=== PATIENT | male | born 2000 | race Hispanic/Latino ===

== ENCOUNTER 2024-07-10 16:54 | Emergency (ER) | payer OTHER ==
[~2024-07-10] VITALS: Ht 182.9 cm; Wt 86.2 kg
[2024-07-10 17:15] VITALS: PULSE 70; RESP 16; TEMP 98.6; O2SAT 100
[2024-07-10] MEDS ORDERED: BELLADONNA ALK/PHENOBARBITAL 5 ML UDC PO STA (17:29)
[2024-07-10] MEDS ORDERED: MAGNESIUM/ALUMINUM/SIMETHICONE 30 ML UDC PO ONE (17:30)
[2024-07-10] MEDS ORDERED: LIDOCAINE VISC 2% SOLN 15 ML UDC PO ONE (17:30)
[2024-07-10] MEDS ORDERED: ONDANSETRON HCL INJ 2MG/ML 2ML 2 MG/ML VIAL IV PRN (17:30)
[2024-07-10 18:23] LABS: BASOPHILS # (AUTO) 0.1 (0.0-0.1); BASOPHILS % 0.5 % (0.0-1.0); EOSINOPHILS # (AUTO) 3.4 (0.0-0.4); HEMATOCRIT 45.8 % (38.2-49.6); HEMOGLOBIN 15.8 g/dL (14.0-18.0); LYMPHOCYTES # (AUTO) 2.2 (1.0-3.2); LYMPHOCYTES % 17.5 % (18.0-39.1); MEAN CORPUSCULAR HGB CONC 34.5 g/dL (31-35); MEAN CORPUSCULAR VOLUME 84.2 fL (81-99); MONOCYTES # (AUTO) 0.5 (0.2-0.8); MONOCYTES % 4.3 % (4.4-11.3); NEUTROPHILS # (AUTO) 6.3 (2.1-6.9); NEUTROPHILS % 50.4 % (38.7-80.0); PLATELET COUNT 333 x10e3/uL (140-360); RED BLOOD COUNT 5.44 x10e6/uL (4.3-5.7); RED CELL DISTRIBUTION WIDTH 12.2 % (11.7-14.4)
[2024-07-10] MEDS: DONNATAL/LIDOCAINE/MAALOX 30 ML SUSP PO ONE (18:30)
[2024-07-10] MEDS: SODIUM CHLORIDE 0.9% 1000ML 1,000 ML IV STA (18:30)
[2024-07-10 18:45] LABS: ALBUMIN 4.5 g/dL (3.5-5.0); ALBUMIN/GLOBULIN RATIO 1.5 (0.8-2.0); BILIRUBIN,TOTAL 0.4 mg/dL (0.2-1.2); CALCIUM 9.9 mg/dL (8.4-10.2); CREATININE, SERUM 1.08 mg/dL (0.72-1.25); TOTAL PROTEIN 7.6 g/dL (6.5-8.1)
[2024-07-10 19:38] LABS: WHITE BLOOD COUNT 12.45 x10e3/uL (4.8-10.8)
[2024-07-10 19:39] LABS: EOSINOPHILS % 26.9 % (0.0-6.0)
[2024-07-10] MEDS ORDERED: DICYCLOMINE HCL20 MG PO (20:07)
[2024-07-10] MEDS ORDERED: ONDANSETRON ODT4 MG SL (20:07)
[2024-07-10] MEDS ORDERED: PANTOPRAZOLE SO40 MG PO (20:07)
== END 2024-07-10 20:17 | disposition home or self-care (01) ==
LOC: ER 17:00
DX: R10.13 Epigastric pain (principal); K29.70 Gastritis, unspecified, without bleeding; R11.2 Nausea with vomiting, unspecified
CPT/HCPCS: 36415; 80053; 83690; 85025; 99283; J2470; J7030